=== PATIENT | female | born 1975 | race Hispanic/Latino ===

== ENCOUNTER 2017-08-12 18:21 | Emergency (ER) | payer MEDICARE ==
[2017-08-12 18:38] VITALS: BP 117/84; PULSE 80; RESP 16; TEMP 98.2; O2SAT 98
--- NOTE | 2017-08-12 18:51 | ED PDOC ---
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 Patient stated she has a pending podiatry appointment on 09/05/17 and did not take any pain medication for relief. 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 - Family History Family History: States: Unknown Family Hx - Social History Current smoker - smoking cessation education provided: Yes Alcohol: Occasional Drugs: Denies - Home Medications Home Medications: Ambulatory Orders Medication Instructions Recorded Acyclovir 400 mg PO TID #30 tab 08/09/15 Ibuprofen [Motrin Tab] 800 mg PO Q6H PRN #20 tab 08/12/17 Sulfamethoxazole/Trimethoprim 1 each PO BID #20 tablet 08/12/17 [Bactrim 400-80 mg Tablet] - Allergies Allergies/Adverse Reactions: Allergies Allergy/AdvReac Type Severity Reaction Status Date / Time gentamicin [Gentamicin] Allergy RASH Verified 03/09/16 11:32 Review of Systems ROS Statement: Except As Marked, All Systems Reviewed And Found Negative Genitourinary Female: Positive for: Pelvic Pain (right-sided groin) Musculoskeletal: Positive for: Foot Pain (right) Physical Exam - Reviewed Nursing Documentation Reviewed: Yes Vital Signs Reviewed: Yes - Physical Exam Appears: Positive for: Well, Non-toxic, No Acute Distress Head Exam: Positive for: ATRAUMATIC, NORMAL INSPECTION, NORMOCEPHALIC - ECG O2 Sat by Pulse Oximetry: 98 (RA) Pulse Ox Interpretation: Normal Medical Decision Making Medical Decision Making: Initial Impression: Right foot pain Initial Plan: * Motrin 600mg PO Time: 1854 --Upon provider evaluation, patient is medically stable and requires no further treatment in the ED at this time. Patient will be discharged home with Rx for Motrin 800mg and Bactrim. Counseling was provided and all questions were answered regarding diagnosis and need for follow up with wax specialist on . There is agreement to discharge plan. Return if symptoms persist or worsen. Clinical Impression: Cellulitis Scribe Attestation: Documented by Aicha Gomez, acting as a scribe for Abby Sutherland MD. Provider Scribe Attestation: All medical record entries made by the Scribe were at my direction and personally dictated by me. I have reviewed the chart and agree that the record accurately reflects my personal performance of the history, physical exam, medical decision making, and the department course for this patient. I have also personally directed, reviewed, and agree with the discharge instructions and disposition. Disposition - Clinical Impression Clinical Impression: Cellulitis - Patient ED Disposition Is Patient to be Admitted: No Counseled Patient/Family Regarding: Diagnosis, Need For Followup, Rx Given - Disposition Disposition: Routine/Home Disposition Time: 18:55 Condition: STABLE Additional Instructions: Please follow-up with wax specialist. Prescriptions: Ibuprofen [Motrin Tab] 800 mg PO Q6H PRN #20 tab PRN Reason: Pain Sulfamethoxazole/Trimethoprim [Bactrim 400-80 mg Tablet] 1 each PO BID #20 tablet Instructions: Cellulitis (ED) Forms: [employer] (Ukrainian)
== END 2017-08-12 18:59 | disposition home or self-care (01) ==
LOC: H.ER 18:21
DX: L03.115 Cellulitis of right lower limb (principal)